=== PATIENT | female | born 1965 | race Caucasian/White ===

== ENCOUNTER → 2016-10-31 | Outpatient (CLI) | payer BC, OTHER ==
[~2016-10-31] MED LIST: CALCIUM 600 +1 EAC8 PO; FIBER THERAPY PO; MULTIVITAMINS1 EAC1 PO; PRILOSEC20 M1 PO; PROTONIX40 MG PO; TYLENOL EXTRA500 MG PO
== END | disposition disaster alternative care site (69) ==
LOC: GBCOE 10-24 15:30
DX: Z12.31 Encounter for screening mammogram for malignant neoplasm of breast (principal)
CPT/HCPCS: G0202